=== PATIENT | male | born 1970 | race Caucasian/White ===

== ENCOUNTER → 2020-08-15 | Day surgery (SDC) | payer OTHER ==
[~2020-08-15] MED LIST: IBUPROFEN 200200 M1 PO; OXYCODONE HCL 55 MG PO; TRAMADOL 50 MG50 MG PO
--- NOTE | 2020-08-18 10:29 | EKG ---
[place] [address] ELECTROCARDIOGRAM REPORT Name: MARTHA DEJESUS Room: [facility]#: [id number] Admission: 08/15/20 Attend Phys: Aba Galloway DO Discharge: Date of : 70 Date of Service: 08/15/20714 Report #: [id number] THIS REPORT FOR: //name// [facility] Test Date: 2020-08-15 Test Time: 07:15:05 Pat Name: MARTHA DEJESUS Department: Room: Gender: [employer]: : 1970 Requested By: Aba Galloway Order Number: [id number] Reading MD: Jeff Osorio Measurements Intervals [place] Rate: 65 P: 25 WV: 179 QRS: 51 QRSD: 81 T: 31 QT: 382 QTc: 398 Interpretive Statements Sinus rhythm No previous ECG available for comparison Electronically Signed On 08-18-2020 10:29:34 CDT by Jeff Osorio [email or web address] <ELECTRONICALLY SIGNED> By: Jeff Osorio MD, [facility] 08/18/20 1029 4 07 Jeff Osorio MD, FACC /EPI
--- NOTE | 2020-08-18 17:06 | PATH ---
[address] [address] PATHOLOGY RPT PROCEDURE Name: MARTHA WHITE Kris Room: [facility]#: [id number] Admission: 08/15/20 Date of : 70 Discharge: Report #: [id number] Path Case #: [id number] [facility] Accession Number: [id number] . 01 Material submitted: . hernia - HERNIA SAC AND CONTENTS . 01 Clinical history: . HERNIA REPAIR,UMBILICAL INCARCERATED UMBILICAL HERNIA POST OP SAME PREOP . 02 Diagnosis: Hernia sac and contents: - Benign, mesothelial-lined fibromembranous/fibrofatty tissue with mild chronic inflammation. (DREA/db; 08/18/2020) LBQ 08/18/2020 1310 Local . 02 Electronically signed: . Ney Lin MD, Pathologist NPI- [id number] . 01 Gross description: . The specimen is received in formalin, labeled "Martha White, hernia sac". Received is a segment of wilcox-michelle fibromembranous tissue measuring 1.4 x 1.1 x 0.5 cm and separately submitted segments of bright yellow lobulated tissue measuring 3.0 x 1.9 x 0.9 cm. No distinct nodules or lesions are noted grossly. The specimen is submitted representatively in cassette A1. (CAA; 08/17/2020) QA/[facility] 08/17/2020 1542 Local . 02 Pathologist provided ICD-10: K42.9 . 02 CPT . 288269 Specimen Comment: A courtesy copy of this report has been sent to [phone] Specimen Comment: [phone] Specimen Comment: Report sent to / DR HUANG Performed at: [address] [id number] MD Zuhair Ochoa MD Phone: [phone] [facility]: [facility] [address], [place] [id number] [place] [address] PATHOLOGY RPT PROCEDURE Name: TIMBO WHITEIN Kris [id number] Admission: 08/15/20 Date of : 70 Discharge: Report #: [id number] Path Case #: [id number] MD Ney Lin MD Phone: [phone]
== END | disposition home or self-care (01) ==
LOC: M.SUR 06:06
PROVIDERS: ATTEND Surgery
DX: K42.9 Umbilical hernia without obstruction or gangrene (principal); E78.5 Hyperlipidemia, unspecified; Z87.891 Personal history of nicotine dependence; Z79.899 Other long term (current) drug therapy; Z98.890 Other specified postprocedural states; Z20.822 Contact with and (suspected) exposure to COVID-19